=== PATIENT | male | born 1990 | race Caucasian/White ===

== ENCOUNTER 2019-01-09 06:47 | Emergency (ER) | payer OTHER, SELFPAY ==
[2019-01-09 07:06] VITALS: BP 125/86; PULSE 87; RESP 16; TEMP 36.6; O2SAT 99; BMI 29.4
--- NOTE | 2019-01-09 08:22 | ED.URI ---
HPI - URI/Sore Throat General Chief Complaint: Upper Respiratory Symptoms Stated Complaint: hurts to swallow, swollen throat head pain Time Seen by Provider: 01/09/19 06:52 Source: patient Mode of arrival: Ambulatory Limitations: no limitations History of Present Illness HPI Narrative: Patient comes emergency department complaining of sore throat, headache, right ear pain, and body aches. He states he has not had much nasal congestion. He states he has somewhat of an urge to cough but does not want to because his throat hurts so bad he denies swelling in his throat. He states it hurts to swallow. Patient states he has children who go to daycare, but otherwise, does not know of any specific sick contacts. No other complaints at this time. Related Data Previous Rx's Medication Instructions Recorded hydrocodone-acetaminophen 5 ml PO Q6H PRN #120 ml 01/09/19 prednisone 60 mg PO DAILY #9 tab 01/09/19 Review of Systems Constitutional Constitutional: Denies chills, Denies fatigue, Denies fever(s), Denies frequent falls, Reports headache(s), Denies lethargy and Denies weakness Comments: Body aches Eyes Eyes: Denies change in vision, Denies eye discharge, Denies irritation and Denies loss of vision ENT Ears, Nose, Mouth, and Throat: Denies change in voice, Denies dizziness, Reports headache(s), Reports neck pain, Reports sore throat and Denies throat swelling Cardiovascular Cardiovascular: Denies chest pain, Denies irregular heart rhythm, Denies lightheadedness, Denies palpitations, Denies dyspnea, Denies dyspnea on exertion and Denies orthopnea Respiratory Respiratory: Reports cough, Denies dyspnea, Denies dyspnea on exertion and Denies wheezing Gastrointestinal Gastrointestinal: Denies abdominal pain, Denies change in bowel habits, Denies diarrhea, Denies nausea and Denies vomiting Genitourinary Genitourinary: Denies hematuria, Denies flank pain, Denies urinary incontinence and Denies urinary urgency Musculoskeletal Musculoskeletal: Denies back pain, Denies muscle weakness, Reports neck pain, Denies numbness and Denies tingling Integumentary/Breasts Skin/Breast: Denies pruritus, Denies erythema, Denies rash and Denies wounds Neurologic Neurologic: Denies behavioral changes, Denies confusion, Denies dizziness, Denies frequent falls, Reports headache(s), Denies loss of vision, Denies numbness, Denies tingling and Denies weakness Psychiatric Psychiatric: Denies anxiety, Denies behavioral changes, Denies confusion, Denies depression, Denies homicidal ideation and Denies suicidal ideation Endocrine Endocrine: Denies fatigue, Denies flushing and Denies palpitations Hematologic/Lymphatic Hematologic/Lymphatic: Denies easy bruising Allergic/Immunologic Allergic/Immunologic: Denies urticaria, Denies throat swelling and Denies wheezing Patient History Medical History Healthy adult (Acute) Surgical History No pertinent past surgical history (Acute) Social History Smoking Status: Never smoker Substance Use Type: does not use Exam Initial Vital Signs Initial Vital Signs: Vital Signs Temperature 98 F 01/09/19 07:06 Pulse Rate 87 01/09/19 07:06 Respiratory Rate 16 01/09/19 07:06 Blood Pressure 125/86 01/09/19 07:06 Pulse Oximetry 99 01/09/19 07:06 Const General: cooperative and well developed Nutritional Appearance: well nourished Orientation: alert, awake, oriented x3 and not confused HENME Head: normocephalic and atraumatic Ears: external ears normal and TM's normal bilaterally Nose: external nose normal and No nasal discharge Face and sinus: sinuses nontender, face symmetric, no sinus tenderness and No dry mucous membranes Mouth: oral mucosae normal and moist mucous membranes Teeth and gingiva: dentition normal Throat: tonsils normal, uvula midline and posterior oropharynx abnormal (Two aphthous ulcers noted on left peritonsillar area. ) erythema (Mild); no exudates Eyes General: appearance normal, both eyes and all related structures Eyelids: eyelids normal Conjunctivae: conjunctivae normal Sclera: sclerae normal Pupils: PERRL EOM: EOM intact bilaterally Neck Neck: normal visual inspection, trachea midline, No lymphadenopathy, No midline deformity and No JVD Lymphatic: No lymphedema Chest Chest: normal inspection of the chest Resp Effort & Inspection: normal respiratory effort, able to speak in complete sentences, no respiratory distress and no use of accessory muscles Auscultation: clear to auscultation bilaterally, no rales, no rhonchi and no wheezes Cardio Rate: regular rate Rhythm: regular rhythm Heart Sounds: no click, no gallops, no murmurs and no rubs Pulses: normal peripheral pulses GI Inspection: non-distended Palpation: soft, no hepatosplenomegaly, No guarding, No pulsatile mass and No tender Auscultation: normal bowel sounds Back/Spine/Pelvis Back: No CVA tenderness Cervical Spine: cervical ROM normal and No pain with cervical ROM Thoracic/Lumbar Spine: thoracic and lumbar spine normal to inspection Skin General: no rashes or lesions noted, No jaundice and No petechiae Neuro General: alert, oriented x3, gait normal and no focal motor deficits Speech: speech normal Extrem General: full ROM, no clubbing, cyanosis or edema, no pedal edema and no calf tenderness Psych Appearance: well kempt Mental Status: mental status grossly normal Attitude: cooperative Thought Content: normal and suicidality Judgment: judgment good Course Course Course Narrative: Patient was treated symptomatically with Toradol and prednisone. He was worked up with swabs for strep and influenza, both of which were negative. I did discuss with the patient that his symptoms are most consistent with a viral infection, which will be self-limited. We have discussed home management of the symptoms, as well as the usual indications for return. Orders Ordered: Discontinued Medications Ketorolac Tromethamine (Toradol) 30 mg IM NOW ONE Stop: 01/09/19 08:22 Last Admin: 01/09/19 08:33 Dose: 30 mg Documented by: LANEY Prednisone (Deltasone) 60 mg PO NOW ONE Stop: 01/09/19 08:22 Last Admin: 01/09/19 08:32 Dose: 60 mg Documented by: LANEY Vital Signs Vital signs: Vital Signs - 8 hr 01/09/19 07:06 Temperature 98 F Pulse Rate 87 Respiratory Rate 16 Blood Pressure 125/86 Pulse Oximetry 99 MDM - URI/Sore Throat Medical Records Attestation: I reviewed the patient's medical records. Lab Data Attestation: I reviewed the patient's lab results. Labs: Lab Results 01/09/19 Range/Units 08:35 Influenza A & B (PCR) Negative (Negative) Point of Care Testing Rapid Strep A Negative Discharge Plan Departure Patient Disposition: Home Clinical Impression: Upper respiratory infection Qualifiers: URI type: acute pharyngitis Pharyngitis/tonsillitis etiology: unspecified etiology Qualified Code(s): J02.9 - Acute pharyngitis, unspecified Discharge Date/Time: 01/09/19 09:14 Instructions: DI for Viral Pharyngitis Activity Restrictions/Additional Instructions: Your strep and influenza tests are negative. Please take the medications prescribed, as needed for your sore throat. You may continue to take ibuprofen along with these medications. Prescriptions: New prednisone 20 mg tablet 60 mg PO DAILY Qty: 9 RF: 0 hydrocodone-acetaminophen 10-325 mg/15 mL(15 mL) solution 5 ml PO Q6H PRN (Reason: pain) Qty: 120 RF: 0
[2019-01-09] MEDS: predniSONE 20 MG TABLET 60 MG PO (08:32)
[2019-01-09] MEDS: KETOROLAC 60 MG/2 ML VIAL 30 MG IM (08:33)
[2019-01-09 08:59] LABS: Influenza A and B by PCR Rapid Negative (Negative)
[2019-01-09 09:14] VITALS: BP 121/83; PULSE 84; RESP 18; O2SAT 99
--- NOTE | 2019-01-09 11:14 | PC.NURSE ---
pt returned, was unable to get hydrocodone suspension filled at pharmacy. dr collier replaced prescription with tablet form hydrocodone. suspension prescription placed in recycling.
== END 2019-01-09 09:14 | disposition home or self-care (01) ==
PROVIDERS: Emergency Provider Emergency Medicine
DX: J02.9 Acute pharyngitis, unspecified (principal)
CPT/HCPCS: 87502; 87880; 96372; 99283; J1885

== ENCOUNTER 2022-01-06 19:46 | Day surgery (SDC) | payer OTHER, SELFPAY ==
[2022-01-06] VITALS (7 sets, daily range): BP systolic 103–138; BP diastolic 69–86; PULSE 79–98; RESP 13–26; TEMP 36.6–37; O2SAT 93–99; BMI 28.7
--- NOTE | 2022-01-06 20:41 | ED_ITS ---
HPI - Skin/Abscess/Foreign Bdy General Chief complaint: Skin/Abscess/Foreign Body Stated complaint: beef stuck in his throat Time Seen by Provider: 01/06/22 20:34 Source: patient Mode of arrival: Ambulatory Limitations: no limitations History of Present Illness HPI narrative: 31-year-old male nonsmoker with history of prior esophageal foreign body presents with a chief complaint of a piece of meat being stuck in his throat since he ate dinner at about 5:00 p.m. tonight. He states that since then he is had inability to eat or drink anything he consumes he immediately vomits back up, he has having some increasing discomfort and difficulty controlling his secretions. He states this has happened once before a few years ago and he had a scope which demonstrated some scarring of his esophagus but no dilatation was performed Related Data Previous Rx's Medication Instructions Recorded hydrocodone 10 mg-acetaminophen 5 ml PO Q6H PRN pain #120 mL 01/09/19 325 mg/15 mL (15 mL) oral solution prednisone 20 mg tablet 60 mg PO DAILY #9 tabs 01/09/19 Allergies Allergy/AdvReac Type Severity Reaction Status Date / Time No Known Drug Allergies Allergy Verified 01/06/22 22:23 Patient History Medical History (Updated 01/07/22 @ 03:34 by Jaime Johns DO) Healthy adult Surgical History No pertinent past surgical history Social History Smoking Status: Never smoker Smoking Status: Never smoker Substance Use Type: does not use Exam Narrative Exam Narrative: GENERAL: [31] year old patient appears stated age. Well-developed patient, in mild distress. Sitting upright, looks uncomfortable holding an emesis bag HEAD: Atraumatic. Normocephalic. EYES: Pupils equal round and reactive. Extraocular motions intact. No scleral icterus. No injection or drainage. ENT: Nose without bleeding, purulent drainage. Throat without erythema, tonsillar hypertrophy or exudate. Airway patent. No obvious foreign body noted on exam NECK: Trachea midline. Non tender CARDIOVASCULAR: Regular rate and rhythm without murmurs, gallops, or rubs. RESPIRATORY: Clear to auscultation. Breath sounds equal bilaterally. No wheezes, rales, or rhonchi. GASTROINTESTINAL: Abdomen soft, non-tender, nondistended. EXTREMITIES: No edema or joint tenderness. BACK: Nontender without deformity or crepitance. No flank tenderness. NEURO: AOx3. SKIN: No rash or erythema of visible areas Initial Vital Signs Initial Vital Signs: Vital Signs Temperature 97.8 F 01/06/22 20:04 Pulse Rate 98 H 01/06/22 20:04 Respiratory Rate 16 01/06/22 20:04 Blood Pressure 138/84 01/06/22 20:04 Pulse Oximetry 98 01/06/22 20:04 Oxygen Delivery Method 01/06/22 20:04 Course Orders Ordered: ED Orders 01/06/22 20:50 COVID19 -Nasal RAPID/Pre-Proc Stat Discontinued Medications Fentanyl (Fentanyl 100 Mcg/2 Ml Inj) 0 mcg IV Q5M PRN PRN Reason: Pain, Moderate (4-6) Glucagon (Glucagon,Human Recombinant 1 Mg/Ml Vial) 1 mg IV NOW ONE Stop: 01/06/22 20:22 Last Admin: 01/06/22 21:06 Dose: 1 mg Documented By: JUAN ANTONIO Lactated Ringer's (Lactated Ringers) 1,000 mls @ 42 mls/hr IV CONT ELANA Last Infusion: 01/06/22 22:45 Dose: 42 mls/hr Documented By: Admin: 01/06/22 22:02 Dose: 42 mls/hr Documented By: CG Metoclopramide HCl (Metoclopramide 10 Mg/2 Ml Inj) 10 mg IV NOW PRN PRN Reason: Nausea And Vomiting Last Admin: 01/06/22 22:57 Dose: 10 mg Documented By: CG Ondansetron HCl (Ondansetron 4 Mg/2 Ml Inj) 4 mg IV NOW PRN PRN Reason: Nausea And Vomiting Last Admin: 01/06/22 22:46 Dose: 4 mg Documented By: CG Vital Signs Vital signs: Vital Signs - 8 hr 01/06/22 20:04 Temperature 97.8 F Pulse Rate 98 H Respiratory Rate 16 Blood Pressure 138/84 Pulse Oximetry 98 Oxygen Delivery Method Room Air MDM - Skin/Abscess/Foreign Bdy Lab Data Labs: Lab Results 01/06/22 Range/Units 20:50 SARS-CoV-2 (PCR) Negative (Negative) MDM Narrative Medical decision making narrative: Patient with prior history of esophageal foreign body presents with concern of meat bolus in esophagus. He is unable to get liquids down and IVs placed, glucagon given followed nearly immediately by kimberlee holder, patient vomits and is unable to get liquids down, having some difficulty controlling his secretions. General surgery contacted who will see patient at the bedside and take to the operating for EGD Discharge Plan Departure Patient Disposition: Admitted to Surgery Clinical Impression: Food impaction of esophagus Admit Date/Time: 01/06/22 21:35 Admit Provider: Katya Butterfield [facility] Discharge Plan Provider Discharge comment: Follow up with your primary doctor as needed. Recommend daily use of a PPI (acid reducing medication) such as Prilosec/Omeprazole. Will most likely need a repeat EGD and dilation for stricture. Diet/Activity/Treatments Diet: Diet as Tolerated
[2022-01-06 21:04] LABS: COVID19 -Nasal RAPID Negative (Negative)
[2022-01-06] MEDS: GLUCAGON,HUMAN RECOMBINANT 1 MG/ML VIAL IV (21:06)
[2022-01-06] MEDS: LACTATED RINGERS 1,000 ML 42 ML IV (22:02)
--- NOTE | 2022-01-06 22:12 | PM.HP.1 ---
History of Present Illness History of Present Illness Date Patient Seen: 01/06/22 Time Patient Seen: 22:12 Chief complaint: beef stuck in his throat Narrative: Eating over cooked steak around 1700 and it became stuck in his throat. Unable to manage his own secretions. This has happened in the past. Reports he does take PPI Patient History Medical History Healthy adult Surgical History No pertinent past surgical history Family & Social History Safety & Behavioral: Feels Safe in Current Yes Environment Been Physically Hurt or No Threatened By a Person Tobacco & Substance use: Smoking Status Never smoker Substance Use Type does not use Meds Home Medications and Allergies Home Medications Medication Instructions Recorded Confirmed Type hydrocodone 10 mg-acetaminophen 5 ml PO Q6H PRN pain #120 mL 01/09/19 Rx 325 mg/15 mL (15 mL) oral solution prednisone 20 mg tablet 60 mg PO DAILY #9 tabs 01/09/19 Rx Review of Systems Review of Systems ROS: Yes All systems reviewed with the patient and are negative except as otherwise documented Exam Vital Signs (past 8 hours): - 01/06/22 20:04 01/06/22 21:56 Temperature 97.8 F 98.6 F Pulse Rate 98 H 86 Respiratory Rate 16 23 Blood Pressure 138/84 121/86 Pulse Oximetry 98 97 Oxygen Delivery Method Room Air Room Air Oxygen Delivery Method Room Air Const General: cooperative and healthy appearing [facility] Head: normal to inspection, normocephalic and atraumatic Eyes General: appearance normal, both eyes and all related structures Sclera: sclerae normal Neck Neck: trachea midline Chest Chest: normal inspection of the chest Resp Effort & Inspection: normal respiratory effort and able to speak in complete sentences Cardio Rate: regular rate Rhythm: regular rhythm GI Inspection: normal to inspection Skin General: no rashes or lesions noted Neuro General: patient alert, patient awake and patient oriented x3 Extrem General: normal to inspection and full ROM Psych Appearance: grossly normal Mental Status: mental status grossly normal Judgment: judgment good Objective Labs Labs: Laboratory Results - last 24 hr 01/06/22 20:50 SARS-CoV-2 (PCR) Negative Assessment & Plan Assessment & Plan narrative: Foreign body in esophagus EGD with removal of foreign body COVID-19 COVID-19 status: Negative Time Spent With Patient Time with patient: less than 30 minutes Critical Care time: I spent a total of [] minutes of critical care time on this patient's care today; this time is exclusive of procedural time.
--- NOTE | 2022-01-06 22:15 | P.OP.EGD_ITS ---
Operative Date/Time/Diagnoses Date of procedure: 01/06/22 Time of procedure: 22:16 Pre-op diagnosis: food impacted in esophagus Post-op diagnosis: same Procedure & Clinicians Study performed: EGD with anesthesia Same procedure as scheduled: Yes Indications: food impacted (FB) in esophagus Surgeon: Katya Butterfield Procedure Notes Procedure in detail: Preop diagnosis: Foreign body in the esophagus Postop diagnosis: Same Operative procedure: EGD with removal of foreign body under general anesthetic Surgeon: Ligia Butterfield MD Findings: Food impaction in the distal esophagus. Irritation and benign- appearing distal esophageal stricture that the food impaction and the scope passed through easily. Dilation not performed Procedure: Patient placed in a supine position. Scope inserted into the esophagus. We advanced to the area of the food impaction which was meat. It was manually pushed further down the esophagus into the stomach. Stomach was full of food as well. Esophagus was visualized on the way out. Irritation of the distal esophagus with a benign-appearing mild stricture consistent with reflux disease Impression: Food impaction/foreign body of the esophagus with benign-appearing distal esophageal stricture mild in appearance consistent with reflux disease. Plan: Discussed with he and his prior to procedure need to be on PPI daily and follow-up with GI for discussion of repeat EGD and dilation. Findings: stricture and other findings (Meat impaction) Specimen(s): none sent Complications: none Post-procedure Recommendations: EDG in 6-8 weeks Plan for aftercare: follow up GI for repeat EGD and esophageal biopsy. Can do medical management with weight loss and PPI daily. Follow up: weeks Disposition: PACU
[2022-01-06] MEDS: ONDANSETRON 4 MG/2 ML INJ IV (22:46)
[2022-01-06] MEDS: METOCLOPRAMIDE 10 MG/2 ML INJ IV (22:57)
== END 2022-01-06 23:05 | disposition home or self-care (01) ==
LOC: ED 21:14 → AC 21:48 → ENDO 01-07 10:58
PROVIDERS: Emergency Provider Emergency Medicine; Referring Provider Emergency Medicine; Visit Provider Surgery
PROC: 0DJ08ZZ Inspection of Upper Intestinal Tract, Via Natural or Artificial Opening Endoscopic (ICD-10-PCS; CPT 43235; principal; 2022-01-06 22:30)
DX: T17.228A Food in pharynx causing other injury, initial encounter (principal); K22.2 Esophageal obstruction
CPT/HCPCS: 43247; 87635; 99224; 99283; C9803; J1610; J2405; J2704; J2765; J3010